=== PATIENT | male | born 1995 | race Caucasian/White ===

== ENCOUNTER 2024-01-27 12:01 | Emergency (ER) | payer SELFPAY ==
[2024-01-27 12:04] VITALS: BP 148/94
--- NOTE | 2024-01-27 12:06 | ED.GENMED ---
ED Provider Triage
<Lilly Mendiola PA-C - Last Filed: 01/27/24 12:10>
-
Patient seen by provider in Triage?: Seen in Triage
Attestation: A medical screening examination has been initiated by a qualified medical provider. Based on the assessment performed at this time, it has been determined that an emergent medical condition may exist and the patient has been informed
that further medical evaluation and possible additional diagnostic testing may be needed.
HPI: 28yoM here with SOB and CP 2 hours ago while driving. Sharp L sided pain with breathing. Sent here by urgent care for an abnormal EKG.
GENERAL: Alert , in no apparent distress
EYE: No visual abnormalities.
NECK: Trachea midline
ENT: No visible abnormalities.
LUNGS: No acute respiratory distress. Bilateral breath sounds present.
NEUROLOGICAL: Alert and oriented
SKIN: Skin intact. No visible changes.
MUSCULOSKELETAL: Moving extremities normally
PSYCH: Normal and appropriate interaction.
This is a medical evaluation conducted in person to initiate diagnostic evaluation and provide initial therapeutics. Please see further documentation by the treating clinician.
History of Present Illness
<Lilly Mendiola PA-C - Last Filed: 01/27/24 12:10>
General
Chief Complaint: Chest Problem
Time Seen by Provider: 01/27/24 15:05
<Mauricio Ribera PA-C - Last Filed: 01/27/24 20:10>
General
Source: patient
History of Present Illness
History of Present Illness:
28-year-old male with no significant past medical history presenting to the emergency department for evaluation of left-sided chest pain described to be sharp, nonradiating, worse with deep inspiration and movement, started around 10 AM this
morning, currently improved without taking any medications. Patient went to urgent care was told that he had a abnormal EKG and was recommended to come to the ER for further evaluation. Patient states that he has had off-and-on chest discomfort
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 Patient does note that he last had a stress
test in 2019 which was unremarkable. Patient denies any recent fevers or illnesses, cough, recent travel, known sick contacts, hemoptysis, lower extremity edema. Family history noncontributory. Social history was negative for cigarettes/tobacco
or any history of IV drug abuse
Past History
<Mauricio Ribera PA-C - Last Filed: 01/27/24 20:10>
Past History
ED Past Medical History: None
ED Past Surgical History: None
Social History
Tobacco: Non-smoker
Alcohol: Occasional
Drug: None
Personal: Single
Living: with family
Employment: Employed
Review of Systems
<Mauricio Ribera PA-C - Last Filed: 01/27/24 20:10>
Review of Systems
All Other Systems: ROS reviewed and negative except as documented in HPI and ROS
Phy Exam
<Mauricio Ribera PA-C - Last Filed: 01/27/24 20:10>
Physical Exam
Physical Exam:
GENERAL: Alert , in no apparent distress
EYE: clear conjunctiva b/l
HEAD: NCAT
ENT: mmm.
CARDIAC: Regular rate and rhythm, no murmur.
LUNGS: Clear breath sounds bilaterally, no acute respiratory distress, no wheezes/rales/rhonchi
ABDOMEN: Soft, without focal tenderness, no r/g, no cvat
NEUROLOGICAL: Alert and oriented
SKIN: Warm and dry, skin intact.
MUSCULOSKELETAL: No edema, well perfused.
PSYCH: Normal and appropriate interaction.
Scores
<Mauricio Ribera PA-C - Last Filed: 01/27/24 20:10>
Heart Failure Risk
Heart Failure Risk Score: Not Applicable
Heart Score for Chest Pain Patients
STEMI patient?: No
History: Slightly or Non-Suspicious
ECG: Nonspecific Repolarization
Age: </= 45 years
Risk Factors: No Risk Factors
Troponin: </= Normal Limit
Heart Score for Chest Pain Patients: 1
Heart Score Risk: 2.5% MACE over next 6 weeks
Withdrawal Assessment of Alcohol
Withdrawal Assessment Completed?: Not applicable
Course
<Lilly Mendiola PA-C - Last Filed: 01/27/24 12:10>
Orders/Labs/Results
Orders:
Orders
01/27/24 12:02
Electrocardiogram (*1) Urgent
Reason for Study: Chest Pain
EKG- Treatment ONCE
01/27/24 12:09
CR Chest - 2 Views Urgent
Comment:
Reason For Exam: CP, SOB
01/27/24 12:12
Complete Blood Count/With Diff Urgent
Comprehensive Metabolic Panel Urgent
D-Dimer Urgent
Troponin I Urgent
01/27/24 15:26
Troponin I Urgent
Abnormal Lab Results
01/27/24
12:12
Albumin 5.2 H g/dl
(3.5-5.0)
01/27/24 12:12
01/27/24 12:12
Vital Signs
Initial and Last Documented VS:
Initial Vital Signs
Temp Pulse Resp BP Pulse Ox
98.1 F 108 16 148/94 98
01/27/24 12:04 01/27/24 12:04 01/27/24 12:04 01/27/24 12:04 01/27/24 12:04
Last Documented Vital Signs
Temp Pulse Resp BP Pulse Ox
98.1 F 84 18 109/56 99
01/27/24 12:04 01/27/24 15:23 01/27/24 16:24 01/27/24 16:24 01/27/24 16:24
<Mauricio Ribera PA-C - Last Filed: 01/27/24 20:10>
Orders/Labs/Results
Orders:
Orders
01/27/24 12:02
Electrocardiogram (*1) Urgent
Reason for Study: Chest Pain
EKG- Treatment ONCE
01/27/24 12:09
CR Chest - 2 Views Urgent
Comment:
Reason For Exam: CP, SOB
01/27/24 12:12
Complete Blood Count/With Diff Urgent
Comprehensive Metabolic Panel Urgent
D-Dimer Urgent
Troponin I Urgent
01/27/24 15:26
Troponin I Urgent
Abnormal Lab Results
01/27/24
12:12
Albumin 5.2 H g/dl
(3.5-5.0)
01/27/24 12:12
01/27/24 12:12
Vital Signs
Initial and Last Documented VS:
Initial Vital Signs
Temp Pulse Resp BP Pulse Ox
98.1 F 108 16 148/94 98
01/27/24 12:04 01/27/24 12:04 01/27/24 12:04 01/27/24 12:04 01/27/24 12:04
Last Documented Vital Signs
Temp Pulse Resp BP Pulse Ox
98.1 F 84 18 109/56 99
01/27/24 12:04 01/27/24 15:23 01/27/24 16:24 01/27/24 16:24 01/27/24 16:24
<Mauricio Ribera PA-C - Last Filed: 01/27/24 20:10>
MDM/Problems Addressed
Differential Diagnosis Includes:
Musculoskeletal chest pain, pleurisy, costochondritis, ACS, PE
MDM/Problems Addressed:
28-year-old male presenting to the emergency department for further evaluation of chest pain that started around 10 AM, reportedly had an abnormal EKG at urgent care, pain improved upon arrival here to the emergency department. Patient did have
some mild tachycardia in triage. Labs ordered in triage. Chest x-ray ordered. Patient low risk chest pain. Anticipate 3-hour troponin. Patient notes that he does have [facility] including an
echocardiogram and stress test. Assuming workup unremarkable patient will be discharged home for continued outpatient management.
<Mauricio Ribera PA-C - Last Filed: 01/27/24 20:10>
*Radiology
Radiology exam reviewed: preliminary read by ED provider (Normal chest x-ray)
*Pulse Oximetry
Patient hypoxic: no
*EKG
Heart Rate: 103
Rate: tachycardiac
Rhythm: sinus
[place]: right axis deviation
Ischemia: T-wave inversion (Leads III and aVF)
*Vinyl Flooring Installer Interpretation
Rate: normal
Rhythm: sinus
*Critical Care Note
Total Time (30-74mins, 75-104mins- exclusive of procedures): Not Applicable
<Mauricio Ribera PA-C - Last Filed: 01/27/24 20:10>
Comment
Comment:
Patient's labs are all unremarkable. No leukocytosis, negative D-dimer and negative initial troponin. Chest x-ray also within normal limits. Patient's EKG does show T wave inversions in leads III and aVF but no other ischemic changes. Will
repeat troponin and as long as this is unremarkable we will discharge patient home. Suspect muscular etiology especially given the fact patient's pain was reproducible with movement. Offered patient outpatient cardiology visit via chest pain
hotline however he states he would prefer to just [facility] as he already has scheduled.
Patient Management
Escalation/DeEscalation of care consider admission/obs:
Repeat troponin negative. Patient stable for discharge home and aware of return precautions.
ED Attending Note
<Lilly Mendiola PA-C - Last Filed: 01/27/24 12:10>
-
Portions of this chart may have been created with voice recognition software.� Occasional wrong word or��sound alike� substitutions may have occurred due to the inherent limitations of voice recognition software.
Discharge Plan
Departure
Patient Disposition: Home (Routine Discharge)
Date of Disposition: 01/27/24
Time of Disposition: 16:10
Patient with high blood pressure during this ER visit?: Yes
Discharge Problem:
Chest pain
Instructions: Chest Pain (DC)
Referrals:
NONE,* [Family Provider] -
Interventions
Interventions:
*Risk Screen - Suicide Last Done: 01/27/24 12:04
*General Assessment Last Done: 01/27/24 12:04
*Neglect/Abuse Screening Last Done: 01/27/24 12:04
*ED COVID-19 Vaccine History Last Done: 01/27/24 14:51
*Nursing Disposition Last Done: 01/27/24 16:24
ED- Cardiac Assessment Last Done: 01/27/24 15:28
ED- Pulmonary Assessment Last Done: 01/27/24 15:28
Discharge Date and Time
Discharge Date/Time: 01/27/24 16:26
Print Language: ARABIC
[2024-01-27 12:20] LABS: % Eosinophils 0.6 % (0-6); % Immature Granulocytes 0.1 % (0-0.5); % Lymphocytes 31.6 % (20.5-51.1); % Monocytes 6.3 % (1.7-9.3); % Neutrophils 60.4 % (42.2-75.2); Absolute Basophils 0.1 10^3/uL (0-0.2); Absolute Lymphocytes 2.3 10^3/uL (1.2-3.4); Absolute Monocytes 0.5 10^3/uL (0.1-0.6); Absolute Neutrophils 4.3 10^3/uL (1.4-6.5); Hematocrit 43.1 % (39.0-52.0); Hemoglobin 15.2 g/dL (13.0-18.0); Mean Corp Hgb Conc. 35.3 g/dL (33.0-37.0); Mean Corpuscular Hgb 29.4 pg (27.0-31.0); Mean Corpuscular Volume 83.4 fL (80.0-94.0); Nucleated Red Blood Cells % 0 % (-); Platelet Count 341 10^3/uL (130-400); Red Blood Cell Count 5.17 10^6/uL (4.70-6.10); Red Cell Dist. Width 12.2 % (11.5-14.5); White Blood Cell Count 7.2 10^3/uL (4.8-10.8)
[2024-01-27 12:45] LABS: Troponin I < 0.012 ng/ml
[2024-01-27 12:47] LABS: ALT (SGPT) 29 U/L (0-50); AST (SGOT) 24 U/L (17-59); Albumin 5.2 g/dl (3.5-5.0); Alkaline Phosphatase 84 U/L (38-126); Blood Urea Nitrogen 17 mg/dl (9-20); Calcium 10.2 mg/dl (8.4-10.2); Carbon Dioxide 24 mmol/L (22-30); Chloride 102 mmol/L (98-107); Glucose 98 mg/dl (70-99); Potassium 4.1 mmol/L (3.5-5.1); Sodium 140 mmol/L (135-145); Total Bilirubin 0.6 mg/dl (0.2-1.3); Total Protein 8.1 g/dl (6.3-8.2); eGFR > 60.00
[2024-01-27 12:54] LABS: D-Dimer < 0.27 ug/mlFEU (0.00-0.50)
[2024-01-27 15:23] VITALS: BP 128/71
[2024-01-27 15:55] LABS: Troponin I < 0.012 ng/ml
[2024-01-27 16:24] VITALS: BP 109/56
== END 2024-01-27 16:26 | disposition home or self-care (01) ==
LOC: EMR 12:01
PROVIDERS: Physician Assistant; Physician Assistant Medical; EMERGENCY PHYSICIAN Emergency Medicine
DX: R07.89 Other chest pain (principal)
CPT/HCPCS: 99283; 71046; 80053; 84484; 85025; 85379; 93005